=== PATIENT | female | born 1935 | race Caucasian/White ===

== ENCOUNTER → 2016-08-16 | Outpatient (CLI) | payer MEDICARE, BC ==
[~2016-08-16] MED LIST: ASPIRIN81 MG PO; ATARAX10 MG PO; COREG6.25 MG PO; DEMADEX20 MG PO; FLEXERIL10 MG PO; GARLIC500 MG PO; GENICIN500 MG PO; GINKGO BILOBA120 M1 PO; KLOR-CON M2020 MEQ PO; LEXAPRO20 MG PO; SILVADENE 1%85 GM TOP; SYNTHROID100 MCG PO; XARELTO15 MG PO; ZYLOPRIM300 MG PO
== END | disposition short-term general hospital (02) ==
LOC: CLORTH 08:54
DX: M25.561 Pain in right knee (principal); M25.551 Pain in right hip

== ENCOUNTER → 2016-08-17 | Outpatient (CLI) | payer MEDICARE, BC | END | disposition short-term general hospital (02) | LOC: CLNEPH 12:01 | DX: N18.3 Chronic kidney disease, stage 3 (moderate) (principal); I50.9 Heart failure, unspecified; N17.9 Acute kidney failure, unspecified; I48.92 Unspecified atrial flutter ==

== ENCOUNTER → 2016-09-11 | Outpatient (CLI) | payer MEDICARE, BC | END | disposition short-term general hospital (02) | LOC: CLCARD 10:21 | DX: I50.32 Chronic diastolic (congestive) heart failure (principal); I50.1 Left ventricular failure, unspecified; R63.8 Other symptoms and signs concerning food and fluid intake; I48.2 Chronic atrial fibrillation; I44.2 Atrioventricular block, complete; J44.9 Chronic obstructive pulmonary disease, unspecified; N18.4 Chronic kidney disease, stage 4 (severe); Z79.01 Long term (current) use of anticoagulants; Z95.0 Presence of cardiac pacemaker ==